=== PATIENT | male | born 1945 | race Caucasian/White ===

== ENCOUNTER → 2023-06-24 16:27 | Outpatient (REF) | payer MEDICARE, OTHER, SELFPAY | LOC: HWRAD 16:27 | PROVIDERS: ATTENDING PHYSICIAN Family Medicine | DX: S40.011A Contusion of right shoulder, initial encounter (principal); S50.01XA Contusion of right elbow, initial encounter; S62.101A Fracture of unspecified carpal bone, right wrist, initial encounter for closed fracture; S82.891A Other fracture of right lower leg, initial encounter for closed fracture | CPT/HCPCS: 73030; 73080; 73110; 73610 ==

== ENCOUNTER → 2023-08-09 12:50 | Outpatient (REF) | payer MEDICARE, OTHER, SELFPAY | LOC: HWRAD 12:50 | PROVIDERS: ATTENDING PHYSICIAN Internal Medicine Critical Care Medicine; FAMILY PHYSICIAN Family Medicine | DX: Z87.891 Personal history of nicotine dependence (principal) | CPT/HCPCS: 71271 ==

== ENCOUNTER → 2023-09-03 06:34 | Outpatient (REF) | payer MEDICARE, OTHER, SELFPAY ==
[2023-09-03 10:08] LABS: Blood Urea Nitrogen 20 mg/dl (9-20)
== END ==
LOC: HWLAB 06:34
PROVIDERS: ATTENDING PHYSICIAN Internal Medicine Critical Care Medicine; FAMILY PHYSICIAN Family Medicine
DX: J44.9 Chronic obstructive pulmonary disease, unspecified (principal); R91.8 Other nonspecific abnormal finding of lung field
CPT/HCPCS: 36415; 82565; 84520

== ENCOUNTER → 2023-09-08 10:59 | Outpatient (REF) | payer MEDICARE, OTHER, SELFPAY | LOC: HWRAD 10:59 | PROVIDERS: ATTENDING PHYSICIAN Internal Medicine Critical Care Medicine; FAMILY PHYSICIAN Family Medicine | DX: J44.9 Chronic obstructive pulmonary disease, unspecified (principal); R91.8 Other nonspecific abnormal finding of lung field | CPT/HCPCS: 71260; Q9967 ==

== ENCOUNTER 2023-10-04 06:11 | Day surgery (SDC) | payer MEDICARE, OTHER, SELFPAY ==
[2023-10-04] VITALS (13 sets, daily range): BP systolic 81–138; BP diastolic 61–95; BMI 32.1
== END 2023-10-04 15:43 | disposition home or self-care (01) ==
LOC: GI 06:11
PROVIDERS: ATTENDING PHYSICIAN Internal Medicine Critical Care Medicine
DX: C77.1 Secondary and unspecified malignant neoplasm of intrathoracic lymph nodes (principal); R59.0 Localized enlarged lymph nodes
CPT/HCPCS: 31629; 31654; 88172; 88173; 88305; 88341; 88342

== ENCOUNTER → 2023-11-05 08:28 | Outpatient (REF) | payer MEDICARE, OTHER, SELFPAY ==
[2023-11-05 08:50] VITALS: BP 129/99; BP_SYST 81
[2023-11-05] MEDS: ANCEF 10 IV (09:10)
[2023-11-05 11:10] VITALS: BP 155/99
== END ==
LOC: RADI 08:28
PROVIDERS: ATTENDING PHYSICIAN Internal Medicine Hematology & Oncology; FAMILY PHYSICIAN Family Medicine
DX: C34.90 Malignant neoplasm of unspecified part of unspecified bronchus or lung (principal)
CPT/HCPCS: 36561; 76937; 77001; 99152; 99153; C1788